=== PATIENT | female | born 1970 | race Caucasian/White ===

== ENCOUNTER 2017-05-06 08:17 | Inpatient (IN) | payer OTHER ==
[~2017-05-06] VITALS: Ht 162.6 cm; Wt 80.1 kg
[2017-05-06] MEDS ORDERED: hydrALAzine 20 MG/ML, 1ML IV ONE ×2 (09:00→10:30)
[2017-05-06] MEDS ORDERED: FENTANYL PF 100 MCG/2ML IV ONE ×2 (09:00→10:30)
[2017-05-06 09:15] LABS: HEMATOCRIT 42.2 % (34.6-47.8); HEMOGLOBIN 14.4 g/dL (11.7-16.4); WHITE BLOOD COUNT 5.3 x10^3/uL (3.4-10)
[2017-05-06] MEDS ORDERED: hydrALAzine 20 MG/ML, 1ML ONE (09:22)
[2017-05-06] MEDS ORDERED: FENTANYL PF 100 MCG/2ML ONE ×4 (09:22→12:24)
[2017-05-06 09:23] LABS: BLOOD UREA NITROGEN 11 mg/dL (7-18)
[2017-05-06 09:33] LABS: IS PT STATUS REG ER OR PRE ER? YES
[2017-05-06] MEDS ORDERED: LISI1TAB5 PO (09:42)
[2017-05-06] MEDS ORDERED: OMNIPAQUE 350 MG/ML, 100ML BOTTLE ONE (10:42)
[2017-05-06] MEDS: FENTANYL PF 100 MCG/2ML IVPush PRN ×2 (11:16→12:28)
[2017-05-06] MEDS ORDERED: HYDROmorphone 1 MG/ML, 1ML ONE (13:55)
[2017-05-06] MEDS ORDERED: ONDANSETRON 2MG/ML, 2ML IVPush PRN (14:00)
[2017-05-06] MEDS ORDERED: HYDROmorphone 1 MG/ML, 1ML IV SCH (14:00)
[2017-05-06] MEDS ORDERED: ONDANSETRON ODT 4 MG PO PRN (14:00)
[2017-05-06] MEDS ORDERED: GUAIFENESIN/DM 200-20MG, 10ML UDC PO PRN (14:00)
[2017-05-06] MEDS ORDERED: LABETALOL 5MG/ML, 20ML IVPush PRN (14:00)
[2017-05-06] MEDS: hydrALAzine 20 MG/ML, 1ML IVPush PRN (14:05)
[2017-05-06 16:16] VITALS: BP 179/114
[2017-05-06] MEDS: HYDROmorphone 2 MG/ML, 1ML IVPush PRN ×3 (17:02→22:13)
[2017-05-06] MEDS: HYDROCHLOROTHIAZIDE 12.5 MG CAPSULE PO SCH (17:28)
[2017-05-06] MEDS: LISINOPRIL 20 MG TABLET PO SCH (17:29)
[2017-05-06] MEDS ORDERED: CYANOCOBALAMIN 1,000 MCG/ML, 1ML IM ONE (18:30)
[2017-05-06] MEDS: SODIUM CHLORIDE 0.9% 1,000 ML IV SCH (18:32)
[2017-05-06] MEDS: NICOTINE 7 MG/24 HR PATCH.TD24 TD SCH (18:32)
[2017-05-06 20:23] VITALS: BP 146/90
[2017-05-06] MEDS ORDERED: LORazepam 1MG TABLET ONE (20:35)
[2017-05-06] MEDS: LORazepam 0.5MG TABLET PO PRN (20:53)
[2017-05-07 01:32] VITALS: BP 133/82
[2017-05-07] MEDS: HYDROmorphone 2 MG/ML, 1ML IVPush PRN ×4 (03:00→14:38)
[2017-05-07] MEDS: SODIUM CHLORIDE 0.9% 1,000 ML IV SCH ×3 (03:58→20:08)
[2017-05-07 05:25] LABS: HEMATOCRIT 38.7 % (34.6-47.8); HEMOGLOBIN 13.2 g/dL (11.7-16.4)
[2017-05-07 05:37] LABS: ASPARTATE AMINO TRANSFERASE 11 U/L (15-37); BLOOD UREA NITROGEN 15 mg/dL (7-18)
[2017-05-07] MEDS: HYDROCHLOROTHIAZIDE 12.5 MG CAPSULE PO SCH (08:37)
[2017-05-07] MEDS: LISINOPRIL 20 MG TABLET PO SCH (08:38)
[2017-05-07] MEDS: SENNA/DOCUSATE TABLET PO SCH (08:38)
[2017-05-07] MEDS: PANTOPRAZOLE 40 MG IV IVPush SCH (08:38)
[2017-05-07 08:55] VITALS: BP 166/84
[2017-05-07] MEDS ORDERED: POTASSIUM CHLORIDE 20 MEQ TAB.ER.PRT PO ONE (09:00)
[2017-05-07] MEDS: LORazepam 0.5MG TABLET PO PRN ×2 (09:32→20:08)
[2017-05-07 14:16] VITALS: BP 156/96
[2017-05-07] MEDS: NICOTINE 7 MG/24 HR PATCH.TD24 TD SCH (14:38)
[2017-05-07] MEDS: OXYcodone IR 5MG TABLET PO PRN ×2 (17:19→23:12)
[2017-05-07 19:22] VITALS: BP 158/94
[2017-05-08] VITALS (11 sets, daily range): BP systolic 146–189; BP diastolic 84–117
[2017-05-08] MEDS: hydrALAzine 20 MG/ML, 1ML IVPush PRN ×2 (01:32→17:33)
[2017-05-08] MEDS: SODIUM CHLORIDE 0.9% 1,000 ML IV SCH (03:31)
[2017-05-08] MEDS: OXYcodone IR 5MG TABLET PO PRN ×3 (05:14→22:37)
[2017-05-08 06:14] LABS: HEMATOCRIT 36.8 % (34.6-47.8); HEMOGLOBIN 12.6 g/dL (11.7-16.4); WHITE BLOOD COUNT 4.7 x10^3/uL (3.4-10)
[2017-05-08 06:33] LABS: ASPARTATE AMINO TRANSFERASE 19 U/L (15-37); BLOOD UREA NITROGEN 12 mg/dL (7-18)
[2017-05-08] MEDS: SENNA/DOCUSATE TABLET PO SCH (09:00)
[2017-05-08] MEDS: HYDROCHLOROTHIAZIDE 12.5 MG CAPSULE PO SCH ×2 (09:29→20:13)
[2017-05-08] MEDS: LORazepam 0.5MG TABLET PO PRN ×3 (09:29→17:39)
[2017-05-08] MEDS: PANTOPRAZOLE 40 MG IV IVPush SCH (09:29)
[2017-05-08] MEDS: LISINOPRIL 20 MG TABLET PO SCH ×2 (09:29→20:13)
[2017-05-08 09:55] LABS: OCCBLD OBC PASS
[2017-05-08] MEDS: NICOTINE 7 MG/24 HR PATCH.TD24 TD SCH (13:11)
[2017-05-08] MEDS ORDERED: OXYcodone IR 5MG TABLET PO PRN (13:30)
[2017-05-08] MEDS ORDERED: ACETAMINOPHEN 325 MG TABLET PO PRN (13:30)
[2017-05-08] MEDS ORDERED: HYDR12.53 PO (16:09)
[2017-05-08] MEDS ORDERED: LISI-170 PO (16:09)
[2017-05-09] MEDS: OXYcodone IR 5MG TABLET PO PRN ×4 (02:55→16:08)
[2017-05-09] MEDS: LORazepam 0.5MG TABLET PO PRN ×2 (02:55→10:49)
[2017-05-09 02:58] VITALS: BP 174/102
[2017-05-09] MEDS: hydrALAzine 20 MG/ML, 1ML IVPush PRN (03:02)
[2017-05-09 05:34] VITALS: BP 154/73
[2017-05-09 07:54] VITALS: BP 168/97
[2017-05-09] MEDS: HYDROCHLOROTHIAZIDE 12.5 MG CAPSULE PO SCH (08:15)
[2017-05-09] MEDS: LISINOPRIL 20 MG TABLET PO SCH (08:15)
[2017-05-09] MEDS: SENNA/DOCUSATE TABLET PO SCH (08:16)
[2017-05-09] MEDS ORDERED: AMLODIPINE 5 MG TABLET PO ONE (08:30)
[2017-05-09] MEDS ORDERED: ENALAPRILAT 1.25 MG/ML, 2ML IV PRN (10:30)
[2017-05-09 10:39] VITALS: BP 166/97
[2017-05-09 14:00] VITALS: BP 154/92
[2017-05-09] MEDS: NICOTINE 7 MG/24 HR PATCH.TD24 TD SCH (14:59)
[2017-05-09] MEDS ORDERED: AMLO2.5T PO (15:11)
== END 2017-05-09 16:11 | disposition home or self-care (01) | DRG 392 ==
LOC: ED 09:41 → EDIP 13:39 → 4EST 16:02
PROVIDERS: ADMIT Internal Medicine; ATTEND Internal Medicine
DX: R10.32 Left lower quadrant pain (principal); D75.89 Other specified diseases of blood and blood-forming organs; I16.0 Hypertensive urgency; F17.210 Nicotine dependence, cigarettes, uncomplicated; K21.9 Gastro-esophageal reflux disease without esophagitis; G89.29 Other chronic pain; I77.810 Thoracic aortic ectasia; N83.202 Unspecified ovarian cyst, left side; R63.4 Abnormal weight loss; N83.201 Unspecified ovarian cyst, right side; Z79.899 Other long term (current) drug therapy; Z80.41 Family history of malignant neoplasm of ovary; Z80.49 Family history of malignant neoplasm of other genital organs; Z82.49 Family history of ischemic heart disease and other diseases of the circulatory system; Z90.711 Acquired absence of uterus with remaining cervical stump; Z85.42 Personal history of malignant neoplasm of other parts of uterus; Z68.30 Body mass index [BMI] 30.0-30.9, adult; Z86.010 Personal history of colon polyps; Z90.721 Acquired absence of ovaries, unilateral; Z98.51 Tubal ligation status
CPT/HCPCS: 36415; 70450; 71010; 71275; 74175; 74176; 76700; 76830; 80048; 80053; 81003; 82040; 82272; 82607; 82746; 83690; 83735; 83880; 84439; 84443; 84484; 84702; 85025; 85610; 93005; 93306; 96374; 96375; 96376; J1170; J3010; Q9967; C9113; J0360; J3420; J7030

== ENCOUNTER 2017-06-29 16:33 | Inpatient (IN) | payer MEDICAID ==
[~2017-06-29] VITALS: Ht 162.6 cm; Wt 74.3 kg
[~2017-06-29 16:33] MED LIST: AMLO2.5T PO; HYDR12.53 PO; LISI-170 PO; LISI1TAB5 PO
[2017-06-29] MEDS ORDERED: SODIUM CHLORIDE 0.9% 1,000ML IVBOLUS ONE ×2 (17:00→18:00)
[2017-06-29] MEDS ORDERED: SODIUM CHLORIDE FLUSH 10ML SYR IVF ONE (17:00)
[2017-06-29] MEDS ORDERED: ONDANSETRON 2MG/ML, 2ML IVPush ONE (17:00)
[2017-06-29] MEDS ORDERED: ONDANSETRON 2MG/ML, 2ML ONE (17:11)
[2017-06-29] MEDS ORDERED: HYDROmorphone 1 MG/ML, 1ML ONE ×3 (17:12→18:49)
[2017-06-29 17:16] LABS: HEMATOCRIT 45.4 % (34.6-47.8); HEMOGLOBIN 15.5 g/dL (11.7-16.4); WHITE BLOOD COUNT 7.7 x10^3/uL (3.4-10)
[2017-06-29] MEDS: HYDROmorphone 1 MG/ML, 1ML IVPush PRN ×2 (17:19→18:11)
[2017-06-29] MEDS ORDERED: TRAM50TA2 PO (17:22)
[2017-06-29 17:27] LABS: ASPARTATE AMINO TRANSFERASE 26 U/L (15-37); BLOOD UREA NITROGEN 26 mg/dL (7-18)
[2017-06-29] MEDS ORDERED: OMNIPAQUE 350 MG/ML, 100ML BOTTLE ONE (18:16)
[2017-06-29] MEDS ORDERED: SODIUM CHLORIDE 0.9% 1,000 ML IV ONE (18:42)
[2017-06-29] MEDS ORDERED: HYDROmorphone 1 MG/ML, 1ML IVPush PRN (19:00)
[2017-06-29] MEDS ORDERED: SODIUM CHLORIDE FLUSH 10ML SYR IVF PRN (19:00)
[2017-06-29] MEDS ORDERED: ENALAPRILAT 1.25 MG/ML, 2ML IVPush PRN (19:30)
[2017-06-29] MEDS ORDERED: BISACODYL 10 MG SUPP PR PRN (19:30)
[2017-06-29] MEDS ORDERED: hydrALAzine 20 MG/ML, 1ML IVPush PRN (19:30)
[2017-06-29] MEDS ORDERED: POLYETHYLENE GLYCOL 17 GM PACKET PO PRN (19:30)
[2017-06-29 20:39] VITALS: BP 139/85
[2017-06-29] MEDS: SODIUM CHLORIDE 0.9% 1,000 ML IV SCH (20:49)
[2017-06-29] MEDS: CEFTRIAXONE PMX 1GM/50ML 50 ML IV SCH (21:00)
[2017-06-29] MEDS: SUCRALFATE 1 GM/10 ML UDC PO SCH (21:03)
[2017-06-29] MEDS: NICOTINE 7 MG/24 HR PATCH.TD24 TD SCH (21:05)
[2017-06-29] MEDS: morphine SULFATE 10 MG/ML, 1ML IVPush PRN (21:20)
[2017-06-29 21:22] VITALS: BP 139/85
[2017-06-29] MEDS: PANTOPRAZOLE 40 MG IV IVPush SCH (21:37)
[2017-06-30 01:08] VITALS: BP 120/78
[2017-06-30] MEDS: morphine SULFATE 10 MG/ML, 1ML IVPush PRN ×7 (01:15→21:01)
[2017-06-30] MEDS: ONDANSETRON 2MG/ML, 2ML IVPush PRN ×3 (01:15→18:47)
[2017-06-30] MEDS: SODIUM CHLORIDE 0.9% 1,000 ML IV SCH ×2 (05:15→11:40)
[2017-06-30 05:54] LABS: HEMATOCRIT 39.9 % (34.6-47.8); HEMOGLOBIN 13.4 g/dL (11.7-16.4); WHITE BLOOD COUNT 4.8 x10^3/uL (3.4-10)
[2017-06-30 05:56] LABS: ASPARTATE AMINO TRANSFERASE 15 U/L (15-37); BLOOD UREA NITROGEN 20 mg/dL (7-18)
[2017-06-30] MEDS: SUCRALFATE 1 GM/10 ML UDC PO SCH ×4 (07:45→21:01)
[2017-06-30 08:03] VITALS: BP 121/81
[2017-06-30] MEDS: PANTOPRAZOLE 40 MG IV IVPush SCH (08:27)
[2017-06-30] MEDS: SENNA/DOCUSATE TABLET PO SCH (08:27)
[2017-06-30] MEDS: AMLODIPINE 5 MG TABLET PO SCH (08:27)
[2017-06-30] MEDS ORDERED: MAALOX/HYOSCYAMINE/LIDOCAINE 45 ML BTL PO PRN (10:30)
[2017-06-30 13:14] VITALS: BP 113/71
[2017-06-30] MEDS: PANTOPROZOLE 40MG TABLET PO SCH (17:07)
[2017-06-30 19:50] VITALS: BP 118/66
[2017-06-30] MEDS: CEFTRIAXONE PMX 1GM/50ML 50 ML IV SCH (21:01)
[2017-06-30] MEDS: NICOTINE 7 MG/24 HR PATCH.TD24 TD SCH (21:01)
[2017-07-01] MEDS: morphine SULFATE 10 MG/ML, 1ML IVPush PRN ×6 (01:07→20:19)
[2017-07-01 01:20] VITALS: BP 122/75
[2017-07-01 07:57] VITALS: BP 119/73
[2017-07-01] MEDS: SUCRALFATE 1 GM/10 ML UDC PO SCH ×4 (08:18→20:29)
[2017-07-01] MEDS: PANTOPROZOLE 40MG TABLET PO SCH ×2 (08:18→16:43)
[2017-07-01] MEDS: AMLODIPINE 5 MG TABLET PO SCH (08:39)
[2017-07-01] MEDS: SENNA/DOCUSATE TABLET PO SCH (08:39)
[2017-07-01] MEDS: OXYcodone IR 5MG TABLET PO PRN ×3 (12:38→22:04)
[2017-07-01 13:34] VITALS: BP 112/69
[2017-07-01 19:21] VITALS: BP 124/74
[2017-07-01] MEDS: CEFTRIAXONE PMX 1GM/50ML 50 ML IV SCH (20:28)
[2017-07-01] MEDS: NICOTINE 7 MG/24 HR PATCH.TD24 TD SCH (20:28)
[2017-07-02 02:08] VITALS: BP 118/71
[2017-07-02] MEDS: morphine SULFATE 10 MG/ML, 1ML IVPush PRN ×3 (05:06→12:23)
[2017-07-02 05:31] LABS: HEMATOCRIT 37.3 % (34.6-47.8); HEMOGLOBIN 12.7 g/dL (11.7-16.4); WHITE BLOOD COUNT 4.2 x10^3/uL (3.4-10)
[2017-07-02 05:51] LABS: ASPARTATE AMINO TRANSFERASE 16 U/L (15-37); BLOOD UREA NITROGEN 19 mg/dL (7-18); C-REACTIVE PROTEIN, QUANT 0.08 mg/dL (0.02-0.49)
[2017-07-02] MEDS: OXYcodone IR 5MG TABLET PO PRN ×3 (07:28→15:30)
[2017-07-02 08:00] VITALS: BP 138/92
[2017-07-02] MEDS: SUCRALFATE 1 GM/10 ML UDC PO SCH ×3 (08:27→15:31)
[2017-07-02] MEDS: PANTOPROZOLE 40MG TABLET PO SCH (08:29)
[2017-07-02] MEDS: SENNA/DOCUSATE TABLET PO SCH (08:30)
[2017-07-02] MEDS: AMLODIPINE 5 MG TABLET PO SCH (08:30)
[2017-07-02 13:31] VITALS: BP 126/74
[2017-07-02] MEDS ORDERED: OMEP20TA62 PO (14:36)
[2017-07-08] MEDS ORDERED: HYDR12.58 PO (13:02)
[2017-07-08] MEDS ORDERED: OMEP-110 PO (13:02)
[2017-07-08] MEDS ORDERED: LISI-170 PO (13:02)
== END 2017-07-02 16:15 | disposition home or self-care (01) | DRG 682 ==
LOC: ED 17:16 → EDIP 19:11 → 3NE 20:35 → DCLOUNGE 07-02 15:38
PROVIDERS: ADMIT Internal Medicine; ATTEND Family Medicine
DX: N17.0 Acute kidney failure with tubular necrosis (principal); K85.90 Acute pancreatitis without necrosis or infection, unspecified; E87.2 Acidosis; N39.0 Urinary tract infection, site not specified; E86.0 Dehydration; F17.210 Nicotine dependence, cigarettes, uncomplicated; I10 Essential (primary) hypertension; K21.9 Gastro-esophageal reflux disease without esophagitis; K22.70 Barrett's esophagus without dysplasia; K29.80 Duodenitis without bleeding; K44.9 Diaphragmatic hernia without obstruction or gangrene; K57.90 Diverticulosis of intestine, part unspecified, without perforation or abscess without bleeding; N83.202 Unspecified ovarian cyst, left side; Z90.710 Acquired absence of both cervix and uterus; Z98.51 Tubal ligation status; Z79.899 Other long term (current) drug therapy
CPT/HCPCS: 36415; 74000; 74022; 74177; 80048; 80053; 80061; 80076; 81001; 83036; 83605; 83690; 83735; 84439; 84443; 84703; 85025; 85610; 85651; 86140; 86677; 87086; 96361; 96374; 96375; 96376; J0696; J1170; J2405; Q9967; C9113; J2270; J7030

== ENCOUNTER → 2017-07-08 | Outpatient (CLI) | payer MEDICAID ==
[~2017-07-08] MED LIST changes: +HYDR12.58 PO; +OMEP-110 PO; +OMEP20TA62 PO; +TRAM50TA2 PO
== END | disposition home or self-care (01) ==
LOC: STAR 13:48
PROVIDERS: ATTEND Obstetrics & Gynecology Female Pelvic Medicine and Reconstructive Surgery
DX: Z01.818 Encounter for other preprocedural examination (principal); R10.2 Pelvic and perineal pain; N39.3 Stress incontinence (female) (male); N85.8 Other specified noninflammatory disorders of uterus
CPT/HCPCS: 81003

== ENCOUNTER 2017-07-14 10:21 | Day surgery (SDC) | payer MEDICAID ==
[~2017-07-14] VITALS: Ht 162.6 cm; Wt 75.8 kg
[~2017-07-14 10:21] MED LIST changes: +BUPIVACAINE/PF 0.25% ONE; +EPINEPHRINE 1 MG/ML, 1ML ONE; +NEOMY/POLYMYXIN B GU IRR. 1 ML IRRIG ONE
[2017-07-14] MEDS ORDERED: LACTATED RINGERS 1,000 ML IV SCH (11:12)
[2017-07-14 11:24] VITALS: BP 144/99
[2017-07-14] MEDS ORDERED: GLYCOPYRROLATE 0.2MG/1ML, 5ML ONE (11:51)
[2017-07-14] MEDS ORDERED: FENTANYL PF 250 MCG/5ML ONE (11:51)
[2017-07-14] MEDS ORDERED: MIDAZOLAM 1 MG/ML, 2ML ONE (11:51)
[2017-07-14] MEDS ORDERED: PROPOFOL 10 MG/ML, 20ML ONE (11:51)
[2017-07-14] MEDS ORDERED: DEXAMETHASONE 4 MG/ML, 1ML ONE (11:51)
[2017-07-14] MEDS ORDERED: CEFAZOLIN 1,000 MG ONE (11:51)
[2017-07-14] MEDS ORDERED: SUCCINYLCHOLINE 20 MG/ML, 10ML ONE (11:52)
[2017-07-14] MEDS ORDERED: ROCURONIUM 10 MG/ML,10ML ONE (11:52)
[2017-07-14] MEDS ORDERED: ONDANSETRON 2MG/ML, 2ML ONE (11:52)
[2017-07-14] MEDS ORDERED: NEOSTIGMINE 1 MG/ML, 10ML ONE (11:52)
[2017-07-14] MEDS ORDERED: LIDOCAINE 4%, 4 ML SYR/CANN TP ONE ×2 (11:55→13:10)
[2017-07-14] MEDS ORDERED: LIDOCAINE-MPF 2% ,5ML ONE (12:29)
[2017-07-14] MEDS ORDERED: VASOPRESSIN 20 UNIT/ML, 1ML ONE (13:10)
[2017-07-14] MEDS ORDERED: hydrALAzine 20 MG/ML, 1ML IV PRN (13:30)
[2017-07-14] MEDS ORDERED: ACETAMINOPHEN 325 MG TABLET PO PRN (13:30)
[2017-07-14] MEDS ORDERED: OXYcodone 5 MG/5 ML ORAL.SOL UDC PO PRN (13:30)
[2017-07-14] MEDS ORDERED: ONDANSETRON 2MG/ML, 2ML IVPush PRN (13:30)
[2017-07-14] MEDS ORDERED: PROMETHAZINE 25 MG/ML, 1ML IV PRN (13:30)
[2017-07-14] MEDS ORDERED: LABETALOL 5MG/ML, 20ML IV PRN (13:30)
[2017-07-14] MEDS ORDERED: OXYcodone 5 MG/5 ML ORAL.SOL UDC ONE (14:23)
[2017-07-14] MEDS ORDERED: FENTANYL PF 100 MCG/2ML ONE (14:23)
[2017-07-14] MEDS: FENTANYL PF 100 MCG/2ML IV PRN ×2 (14:25→14:36)
[2017-07-14] MEDS ORDERED: HYDROmorphone 1 MG/ML, 1ML ONE ×2 (14:37→14:56)
[2017-07-14] MEDS: HYDROmorphone 1 MG/ML, 1ML IV PRN ×4 (14:39→15:16)
[2017-07-14] MEDS ORDERED: ACETAMINOPHEN 650 MG/20.3 ML UDC ONE (15:09)
== END 2017-07-14 17:00 ==
LOC: OUT 10:21
PROVIDERS: ATTEND Obstetrics & Gynecology Female Pelvic Medicine and Reconstructive Surgery
DX: N39.3 Stress incontinence (female) (male) (principal); N81.5 Vaginal enterocele; N32.81 Overactive bladder; N39.46 Mixed incontinence; N83.201 Unspecified ovarian cyst, right side; N10 Acute pyelonephritis; I10 Essential (primary) hypertension; Z90.710 Acquired absence of both cervix and uterus; Z98.890 Other specified postprocedural states
CPT/HCPCS: 57265; 57282; 57288; 58661; 88305; C1771; J0171; J0330; J0690; J1100; J1170; J2250; J2405; J2704; J2710; J3010; J3490; J7120

== ENCOUNTER 2017-07-18 17:43 | Emergency (ER) | payer MEDICAID ==
[~2017-07-18] VITALS: Ht 162.6 cm; Wt 76.8 kg
[~2017-07-18 17:43] MED LIST changes: -BUPIVACAINE/PF 0.25% ONE; -EPINEPHRINE 1 MG/ML, 1ML ONE; -NEOMY/POLYMYXIN B GU IRR. 1 ML IRRIG ONE
[2017-07-18] MEDS ORDERED: SODIUM CHLORIDE 0.9% 1,000 ML IV ONE (17:54)
[2017-07-18] MEDS ORDERED: HYDROmorphone 1 MG/ML, 1ML IVPush PRN (18:00)
[2017-07-18] MEDS ORDERED: SODIUM CHLORIDE 0.9% 1,000ML IVBOLUS ONE (18:00)
[2017-07-18] MEDS ORDERED: ONDANSETRON 2MG/ML, 2ML IVPush ONE (18:00)
[2017-07-18 18:23] LABS: HEMATOCRIT 41.1 % (34.6-47.8); HEMOGLOBIN 14.2 g/dL (11.7-16.4); WHITE BLOOD COUNT 5.9 x10^3/uL (3.4-10)
[2017-07-18] MEDS ORDERED: ONDANSETRON 2MG/ML, 2ML ONE (18:31)
[2017-07-18] MEDS ORDERED: HYDROmorphone 1 MG/ML, 1ML ONE (18:31)
[2017-07-18 18:35] LABS: ASPARTATE AMINO TRANSFERASE 328 U/L (15-37); BLOOD UREA NITROGEN 22 mg/dL (7-18)
[2017-07-18] MEDS ORDERED: OMNIPAQUE 350 MG/ML, 100ML BOTTLE ONE (19:46)
[2017-07-18] MEDS ORDERED: OXYcodone/APAP 5/325MG TABLET ONE (20:15)
[2017-07-18 20:21] VITALS: BP 178/100
[2017-07-18] MEDS ORDERED: OXYcodone/APAP 5/325MG TABLET PO ONE (20:30)
== END 2017-07-18 20:24 | disposition home or self-care (01) ==
LOC: ED 18:10
DX: N30.01 Acute cystitis with hematuria (principal); N99.89 Other postprocedural complications and disorders of genitourinary system; I10 Essential (primary) hypertension; E86.0 Dehydration; Z90.710 Acquired absence of both cervix and uterus; Z98.890 Other specified postprocedural states
CPT/HCPCS: 36415; 74022; 74177; 80053; 81001; 83690; 85025; 87086; 96361; 96374; 96375; 99285; J1170; J2405; J7030; Q9967

== ENCOUNTER 2017-08-02 15:40 | Emergency (ER) | payer MEDICAID ==
[~2017-08-02] VITALS: Ht 162.6 cm; Wt 75.7 kg
[2017-08-02 15:55] VITALS: BP 147/87
[2017-08-02] MEDS ORDERED: SODIUM CHLORIDE 0.9% 1,000 ML IV ONE (16:32)
[2017-08-02] MEDS ORDERED: ONDANSETRON 2MG/ML, 2ML ONE (16:47)
[2017-08-02] MEDS ORDERED: MORPHINE SULFATE 4 MG/ML, 1ML ONE ×2 (16:47→17:27)
[2017-08-02] MEDS: MORPHINE SULFATE 4 MG/ML, 1ML IVPush PRN ×2 (16:49→17:36)
[2017-08-02] MEDS ORDERED: LISI40TA PO (16:56)
[2017-08-02 17:00] LABS: HEMATOCRIT 41.2 % (34.6-47.8); HEMOGLOBIN 14.2 g/dL (11.7-16.4); WHITE BLOOD COUNT 5.1 x10^3/uL (3.4-10)
[2017-08-02] MEDS ORDERED: SODIUM CHLORIDE 0.9% 1,000ML IVBOLUS ONE (17:00)
[2017-08-02] MEDS ORDERED: SODIUM CHLORIDE FLUSH 10ML SYR IVF ONE (17:00)
[2017-08-02] MEDS ORDERED: ONDANSETRON 2MG/ML, 2ML IVPush ONE (17:00)
[2017-08-02 17:14] LABS: PATH.CAST-FLAG NOT PRESENT; SPERM-FLAG NOT PRESENT; SRC-FLAG NOT PRESENT; XTAL-FLAG NOT PRESENT; YLC-FLAG NOT PRESENT
[2017-08-02 17:16] LABS: ASPARTATE AMINO TRANSFERASE 13 U/L (15-37); BLOOD UREA NITROGEN 16 mg/dL (7-18)
== END 2017-08-02 18:47 | disposition home or self-care (01) ==
LOC: ED 18:05
DX: N30.01 Acute cystitis with hematuria (principal); I10 Essential (primary) hypertension
CPT/HCPCS: 36415; 80053; 81001; 85025; 87086; 96361; 96374; 96375; 96376; 99285; J2405; J7030

== ENCOUNTER 2018-05-05 19:00 | Emergency (ER) | payer MEDICAID ==
[~2018-05-05] VITALS: Ht 162.6 cm; Wt 79.2 kg
[~2018-05-05 19:00] MED LIST changes: -AMLO2.5T PO; +AMLO2.5T3 PO; +LISI40TA PO
[2018-05-05 19:24] VITALS: BP 154/108
[2018-05-05] MEDS ORDERED: DIAZEPAM 5 MG TABLET PO ONE (20:00)
[2018-05-05] MEDS ORDERED: ONDANSETRON ODT 4 MG PO ONE (20:00)
[2018-05-05] MEDS ORDERED: ONDANSETRON ODT 4 MG ONE (20:18)
[2018-05-05] MEDS ORDERED: DIAZEPAM 5 MG TABLET ONE (20:19)
== END 2018-05-05 21:13 | disposition home or self-care (01) ==
LOC: ED 20:55
DX: M48.54XA Collapsed vertebra, not elsewhere classified, thoracic region, initial encounter for fracture (principal); I10 Essential (primary) hypertension; F17.200 Nicotine dependence, unspecified, uncomplicated
CPT/HCPCS: 99284; Q0162

== ENCOUNTER → 2018-06-10 | Outpatient (CLI) | payer MEDICAID ==
[~2018-06-10] MED LIST changes: +AMLO5TAB7 PO; +CYCL-259 PO; +FENTANYL PF 100 MCG/2ML ONE; +FLUMAZENIL 0.1 MG/1 ML, 5ML ONE; +HYDR-3245 PO; +MIDAZOLAM 1 MG/ML, 5ML ONE; +NALOXONE 1 MG/ML, 2ML ONE; +NAPR-856 PO
== END | disposition home or self-care (01) ==
LOC: RAD 08:41
PROVIDERS: ATTEND Neurological Surgery
DX: M50.223 Other cervical disc displacement at C6-C7 level (principal); M47.896 Other spondylosis, lumbar region; M47.892 Other spondylosis, cervical region
CPT/HCPCS: 72141; 72148; 99156; 99157; J2250; J3010; J2310

== ENCOUNTER 2018-06-13 06:50 | Emergency (ER) | payer MEDICAID ==
[~2018-06-13] VITALS: Ht 162.6 cm; Wt 78.0 kg
[~2018-06-13 06:50] MED LIST changes: -AMLO5TAB7 PO; -CYCL-259 PO; -FENTANYL PF 100 MCG/2ML ONE; -FLUMAZENIL 0.1 MG/1 ML, 5ML ONE; -HYDR-3245 PO; -MIDAZOLAM 1 MG/ML, 5ML ONE; -NALOXONE 1 MG/ML, 2ML ONE; -NAPR-856 PO
[2018-06-13] MEDS ORDERED: CYCL-259 PO (07:11)
[2018-06-13] MEDS ORDERED: HYDR-3245 PO (07:12)
[2018-06-13] MEDS ORDERED: AMLO5TAB7 PO (07:12)
[2018-06-13] MEDS ORDERED: NAPR-856 PO (07:13)
[2018-06-13] MEDS ORDERED: DIAZEPAM 5 MG/ML, 10ML VIAL IM ONE (07:30)
[2018-06-13 08:25] VITALS: BP 156/83
== END 2018-06-13 08:44 | disposition home or self-care (01) ==
LOC: ED 08:37
DX: S39.012A Strain of muscle, fascia and tendon of lower back, initial encounter (principal); K21.9 Gastro-esophageal reflux disease without esophagitis; I10 Essential (primary) hypertension; F17.200 Nicotine dependence, unspecified, uncomplicated; Z90.710 Acquired absence of both cervix and uterus; Z90.721 Acquired absence of ovaries, unilateral; X58.XXXA Exposure to other specified factors, initial encounter; Y93.89 Activity, other specified; Y92.89 Other specified places as the place of occurrence of the external cause; Y99.8 Other external cause status
CPT/HCPCS: 96372; 99283; J3360; J7512

== ENCOUNTER 2018-09-19 10:46 | Emergency (ER) | payer MEDICAID ==
[~2018-09-19] VITALS: Ht 162.6 cm; Wt 80.5 kg
[~2018-09-19 10:46] MED LIST changes: +AMLO-150 PO; -AMLO2.5T3 PO; +AMLO2.5T5 PO; +CYCL-259 PO; +HYDR-3245 PO; +HYDR12.517 PO; -HYDR12.53 PO; -HYDR12.58 PO; +HYDROCHLOROTH12.5 MG PO; +NAPR-856 PO
--- NOTE | 2018-09-19 11:00 | NUR ---
PT WAS TRIAGED BY CLEMENTINA HESTER
[2018-09-19] MEDS ORDERED: HYDROmorphone 1 MG/ML, 1ML IM STA (12:01)
[2018-09-19] MEDS ORDERED: ONDANSETRON ODT 4 MG ONE (12:02)
[2018-09-19] MEDS ORDERED: HYDROmorphone 1 MG/ML, 1ML ONE ×2 (12:02→13:14)
[2018-09-19] MEDS ORDERED: ONDANSETRON ODT 4 MG PO ONE (12:30)
[2018-09-19] MEDS ORDERED: HYDROmorphone 1 MG/ML, 1ML IM ONE (13:10)
[2018-09-19] MEDS ORDERED: DIPHENHYDRAMINE 50 MG/ML, 1ML ONE (13:43)
[2018-09-19] MEDS ORDERED: LORazepam 2 MG/ML, 1ML ONE (14:25)
[2018-09-19] MEDS ORDERED: LORazepam 2 MG/ML, 1ML IM STA (14:27)
--- NOTE | 2018-09-19 14:36 | NUR ---
REPORT FROM SUPERVISOR MACHINE SETTER THAT PT NOT ABLE TO TOLLERATE MRI WITH MEDS GIVEN PRIOR R/T CLAUSTROPHOBIA. PT MEDICATED IN MRI PER ORDER.
[2018-09-19 15:31] VITALS: BP 184/94
--- NOTE | 2018-09-19 16:07 | NUR ---
Patient/Caregiver given discharge instructions and they have confirmed that they understand the instructions. Patient ambulatory with steady gait. PT LEFT WITH ALL PERSONAL BELONGIONGS.
== END 2018-09-19 16:08 | disposition home or self-care (01) ==
LOC: ED 13:09
DX: G89.29 Other chronic pain (principal); M54.12 Radiculopathy, cervical region; I10 Essential (primary) hypertension; K21.9 Gastro-esophageal reflux disease without esophagitis
CPT/HCPCS: 72141; 96372; 99284; J1170; J2060; Q0162

== ENCOUNTER 2018-10-06 22:57 | Emergency (ER) | payer MEDICAID ==
[~2018-10-06] VITALS: Ht 162.6 cm; Wt 81.5 kg
[2018-10-06] MEDS ORDERED: MORPHINE SULFATE 4 MG/ML, 1ML ONE (23:27)
[2018-10-06] MEDS ORDERED: ONDANSETRON 2MG/ML, 2ML ONE (23:27)
[2018-10-06] MEDS ORDERED: ONDANSETRON 2MG/ML, 2ML IVPush ONE (23:30)
[2018-10-06] MEDS: MORPHINE SULFATE 4 MG/ML, 1ML IVPush PRN (23:45)
--- NOTE | 2018-10-06 23:45 | NUR ---
IV ESTABLISHED, PT MEDICATED PER EMAR, 5 RIGHTS ADDRESSED. LABS DRAWN AND GIVEN TO HUGO DUNCAN. URINE SAMPLE OBTAINED FROM PT, SENT TO LAB.
[2018-10-06 23:50] VITALS: BP 101/81
[2018-10-06 23:52] LABS: BASOPHILS # (AUTO) 0.08 x10^3/uL (0-0.1); BASOPHILS % (AUTO) 2 % (0-1); EOSINOPHILS # (AUTO) 0.05 x10^3/uL (0-0.4); EOSINOPHILS % (AUTO) 1 % (1-7); LYMPHOCYTES # (AUTO) 1.66 x10^3/uL (1-3.4); LYMPHOCYTES % (AUTO) 33 % (22-44); MD NO; MEAN CORPUSCULAR HEMOGLOBIN 35.9 pg (27.0-34.8); MEAN CORPUSCULAR HGB CONC 34.2 g/dL (32.4-35.8); MEAN PLATELET VOLUME 8.1 fL (7.4-10.4); MONOCYTES % (AUTO) 10 % (2-9); NEUTROPHILS # (AUTO) 2.78 x10^3/uL (1.8-6.8); NEUTROPHILS % (AUTO) 55 % (42-75); PLATELET COUNT 257 x10^3/uL (130-400); RED BLOOD COUNT 3.79 x10^6/uL (3.82-5.3); RED CELL DISTRIBUTION WIDTH 16.9 % (9.6-15.2)
[2018-10-07] LABS: MICROSCOPIC NOT IND
[2018-10-07 00:02] LABS: CULTURE INDICATED? NO
[2018-10-07 00:06] LABS: ALANINE AMINOTRANSFERASE 63 U/L (12-78); ALBUMIN 3.4 g/dL (3.4-5.0); ANION GAP 9 mmol/L (5-15); CALCIUM 8.4 mg/dL (8.5-10.1); CHLORIDE 109 mmol/L (98-107)
[2018-10-07 00:08] LABS: ALKALINE PHOSPHATASE 134 U/L (45-117); BILIRUBIN,TOTAL 0.3 mg/dL (0.2-1.0); CREATININE 1.39 mg/dL (0.55-1.02); TOTAL PROTEIN 7.2 g/dL (6.4-8.2)
[2018-10-07] MEDS ORDERED: MORPHINE SULFATE 4 MG/ML, 1ML ONE (00:08)
[2018-10-07] MEDS: MORPHINE SULFATE 4 MG/ML, 1ML IVPush PRN (00:10)
--- NOTE | 2018-10-07 00:11 | NUR ---
PT MEDICATED PER EMAR FOR CONTINUED PAIN, 04/27. PLACED ON 2L BY NC FOR SUPPORT.
[2018-10-07] MEDS ORDERED: OMNIPAQUE 350 MG/ML, 100ML BOTTLE ONE (00:40)
[2018-10-07] MEDS ORDERED: MAALOX/HYOSCYAMINE/LIDOCAINE 45 ML BTL PO ONE (01:30)
== END 2018-10-07 01:30 | disposition home or self-care (01) ==
LOC: ED 23:20
DX: K57.30 Diverticulosis of large intestine without perforation or abscess without bleeding (principal); I10 Essential (primary) hypertension; K21.9 Gastro-esophageal reflux disease without esophagitis; F17.200 Nicotine dependence, unspecified, uncomplicated; Z90.710 Acquired absence of both cervix and uterus; Z90.722 Acquired absence of ovaries, bilateral
CPT/HCPCS: 36415; 74177; 80053; 81003; 83690; 85025; 93005; 96374; 96375; 99284; J2405; Q9967

== ENCOUNTER 2020-07-03 13:12 | Observation (INO) | payer MEDICAID, OTHER ==
[~2020-07-03] VITALS: Ht 162.6 cm; Wt 80.0 kg
[~2020-07-03 13:12] MED LIST changes: +LISI1TAB39 PO; -LISI1TAB5 PO
[2020-07-03 14:10] LABS: BASOPHILS % (AUTO) 1 % (0-1); EOSINOPHILS % (AUTO) 2 % (1-7); LYMPHOCYTES % (AUTO) 25 % (22-44); MEAN CORPUSCULAR HEMOGLOBIN 28.7 pg (27.0-34.8); MEAN CORPUSCULAR HGB CONC 33.3 g/dL (32.4-35.8); MEAN PLATELET VOLUME 8.3 fL (7.4-10.4); MONOCYTES % (AUTO) 5 % (2-9); NEUTROPHILS % (AUTO) 67 % (42-75); PLATELET COUNT 305 x10^3/uL (130-400); RED BLOOD COUNT 5.74 x10^6/uL (3.82-5.3); RED CELL DISTRIBUTION WIDTH 13.4 % (9.6-15.2)
[2020-07-03 14:19] LABS: ALANINE AMINOTRANSFERASE 79 U/L (12-78); ALBUMIN 3.6 g/dL (3.4-5.0); ANION GAP 7 mmol/L (5-15); CHLORIDE 110 mmol/L (98-107); CREATININE 1.38 mg/dL (0.55-1.02)
[2020-07-03 14:24] LABS: ALKALINE PHOSPHATASE 162 U/L (45-117); BILIRUBIN,TOTAL 0.2 mg/dL (0.2-1.0); TOTAL PROTEIN 7.6 g/dL (6.4-8.2)
[2020-07-03 14:36] LABS: MD NO
[2020-07-03] MEDS ORDERED: SODIUM CHLORIDE FLUSH 10ML SYR IVF ONE (16:00)
[2020-07-03] MEDS ORDERED: ONDANSETRON 2MG/ML, 2ML IVPush ONE (16:00)
[2020-07-03] MEDS ORDERED: HYDROmorphone 2 MG/ML, 1ML IVPush PRN (16:00)
[2020-07-03] MEDS ORDERED: METHOCARBAMOL 750 MG TABLET PO ONE (16:00)
[2020-07-03] MEDS ORDERED: HYDROmorphone 1 MG/ML, 1ML INJ ONE ×2 (16:04→17:02)
[2020-07-03] MEDS ORDERED: METHOCARBAMOL 750 MG TABLET ONE (16:04)
[2020-07-03] MEDS ORDERED: ONDANSETRON 2MG/ML, 2ML ONE (16:04)
--- NOTE | 2020-07-03 16:16 | NUR ---
PT TAKEN TO IMAGING.
[2020-07-03] MEDS ORDERED: OMNIPAQUE 350 MG/ML, 100ML BOTTLE ONE (16:39)
--- NOTE | 2020-07-03 16:50 | NUR ---
REPORT TO CLEMENTINA SALDANA.
[2020-07-03] MEDS ORDERED: ASPIRIN 81 MG TABLET CHEW ONE (17:12)
[2020-07-03] MEDS ORDERED: NITROGLYCERIN SINGLE TAB 0.4 MG SL ONE ×2 (17:12→19:26)
[2020-07-03] MEDS: NITROGLYCERIN SINGLE TAB 0.4 MG SL PRN ×3 (17:14→17:53)
--- NOTE | 2020-07-03 17:19 | NUR ---
BREAK RN: PT HAD ONSET OF MILD CHEST PAIN, REPEAT BP 220/112. MD NOTIFIED, NITRO, ASA AND EKG AND TROPONIN ORDERED. ON RETURN TO ROOM PT HAD EVEN MORE WORSENING 10/10 CP WITH NUMBNESS INTO L ARM. EKG DONE, MD NOTIFED
[2020-07-03] MEDS ORDERED: ASPIRIN 81 MG TABLET CHEW PO ONE (17:30)
[2020-07-03 17:31] LABS: TROPONIN I < 0.015 ng/mL (0.000-0.045)
--- NOTE | 2020-07-03 18:45 | NUR ---
PT LAYING BACK IN BED, RESPIRATIONS EVEN AND UNLABORED ON NC. PT DENIES PAIN AT THIS TIME. SIDE RAILS UP, CALL LIGHT IN REACH.
--- NOTE | 2020-07-03 18:59 | NUR ---
ULYSSES PARIKH [phone] IS PT'S AND CAN BE CALLED WITH UPDATES.
[2020-07-03] MEDS ORDERED: SODIUM CHLORIDE FLUSH 10ML SYR IVF PRN (19:00)
--- NOTE | 2020-07-03 19:19 | NUR ---
REPORT TO CLEMENTINA HERNANDEZ.
--- NOTE | 2020-07-03 19:25 | NUR ---
REPORT FROM GEO MCRAE
--- NOTE | 2020-07-03 19:55 | NUR ---
PT RESTING IN [facility], STATES CP HAS "BEEN GONE". BP 177/117. WENT HOME. AWAITING [facility] TO SEE PT.
--- NOTE | 2020-07-03 20:34 | NUR ---
REPORT TO MAYO MCRAE
[2020-07-03] MEDS ORDERED: ACETAMINOPHEN 325 MG TABLET PO PRN (21:00)
[2020-07-03] MEDS ORDERED: morphine SULFATE 10 MG/ML, 1ML IV PRN (21:00)
[2020-07-03] MEDS ORDERED: hydrALAzine 20 MG/ML, 1ML IVPush PRN (21:00)
[2020-07-03] MEDS: NITROGLYCERIN OINT 2%, 1GM TP SCH (21:00)
[2020-07-03] MEDS ORDERED: NICOTINE 7 MG/24 HR PATCH.TD24 TD SCH (21:00)
[2020-07-03] MEDS ORDERED: ONDANSETRON 2MG/ML, 2ML IVPush PRN (21:00)
[2020-07-03] MEDS: HEPARIN 5,000 UNITS/ML, 1ML SQ SCH (21:35)
[2020-07-03] MEDS: KETOROLAC 30 MG/1 ML IV PRN (21:38)
[2020-07-03] MEDS: CYCLOBENZAPRINE 10 MG TABLET PO PRN (21:38)
[2020-07-03 21:51] VITALS: BP 178/110
[2020-07-03 23:38] LABS: TROPONIN I < 0.015 ng/mL (0.000-0.045)
[2020-07-04 00:25] VITALS: BP 166/104
[2020-07-04] MEDS: NITROGLYCERIN OINT 2%, 1GM TP SCH ×3 (03:24→15:00)
[2020-07-04] MEDS: HEPARIN 5,000 UNITS/ML, 1ML SQ SCH ×2 (05:11→12:26)
[2020-07-04] MEDS ORDERED: ASPIRIN 325 MG TABLET EC PO SCH (06:00)
[2020-07-04] MEDS ORDERED: OMEPRAZOLE 20 MG CAPSULE.DR PO SCH (06:00)
[2020-07-04 07:11] VITALS: BP 163/100
[2020-07-04 07:22] LABS: TROPONIN I < 0.015 ng/mL (0.000-0.045)
[2020-07-04] MEDS: KETOROLAC 30 MG/1 ML IV PRN (08:10)
[2020-07-04] MEDS ORDERED: LISINOPRIL 40 MG TABLET PO SCH (09:00)
[2020-07-04] MEDS ORDERED: HYDROCHLOROTHIAZIDE 12.5 MG CAPSULE PO SCH (09:00)
[2020-07-04] MEDS ORDERED: REGADENOSON 0.4 MG/5 ML SYRINGE ONE (09:05)
[2020-07-04 11:13] VITALS: BP 170/94
[2020-07-04] MEDS: CYCLOBENZAPRINE 10 MG TABLET PO PRN (11:20)
[2020-07-04 13:43] VITALS: BP 147/94
[2020-07-04] MEDS ORDERED: CARV3.1212 PO (14:49)
[2020-07-04] MEDS ORDERED: HYDR-3240 PO (14:49)
[2020-07-04] MEDS ORDERED: HYDROcodone/APAP 5/325 TABLET PO ONE (15:00)
[2020-07-04] MEDS ORDERED: CARVEDILOL 3.125 MG TABLET PO SCH (18:00)
== END 2020-07-04 15:43 | disposition home or self-care (01) ==
LOC: ED 18:15 → INTOOBSV 18:36 → EDIP 18:36 → 5SO 20:51 → DCLOUNGE 07-04 15:37
PROVIDERS: ADMIT Family Medicine; ATTEND Hospitalist
DX: I16.1 Hypertensive emergency (principal); I10 Essential (primary) hypertension; N17.0 Acute kidney failure with tubular necrosis; K21.9 Gastro-esophageal reflux disease without esophagitis; G89.29 Other chronic pain; M54.2 Cervicalgia; M54.9 Dorsalgia, unspecified; K22.70 Barrett's esophagus without dysplasia; M40.204 Unspecified kyphosis, thoracic region; F17.200 Nicotine dependence, unspecified, uncomplicated; Z87.19 Personal history of other diseases of the digestive system; Z79.899 Other long term (current) drug therapy; Z90.710 Acquired absence of both cervix and uterus
CPT/HCPCS: 36415; 71045; 71275; 72072; 78452; 80053; 84443; 84484; 85025; 93005; 93017; 96372; 96374; 96375; 96376; 99285; A9502; C9898; G0378; J1170; J1644; J1885; J2405; J2785; Q9967

== ENCOUNTER 2020-08-03 16:51 | Emergency (ER) | payer MEDICAID ==
[~2020-08-03] VITALS: Ht 162.6 cm; Wt 84.1 kg
[~2020-08-03 16:51] MED LIST changes: +CARV3.1212 PO; +HYDR-3240 PO
[2020-08-03 16:54] VITALS: BP 148/85
[2020-08-03] MEDS ORDERED: KETOROLAC 30 MG/1 ML IM ONE (17:00)
[2020-08-03] MEDS ORDERED: HYDROcodone/APAP 5/325 TABLET PO ONE (17:00)
[2020-08-03] MEDS ORDERED: CYCLOBENZAPRINE 10 MG TABLET PO ONE (17:00)
[2020-08-03] MEDS ORDERED: ONDANSETRON ODT 4 MG PO ONE (17:00)
[2020-08-03 18:32] LABS: ALANINE AMINOTRANSFERASE 43 U/L (12-78); ALBUMIN 3.7 g/dL (3.4-5.0); ANION GAP 2 mmol/L (5-15); CALCIUM 9.2 mg/dL (8.5-10.1); CHLORIDE 109 mmol/L (98-107); CREATININE 1.47 mg/dL (0.55-1.02)
[2020-08-03 18:34] LABS: ALKALINE PHOSPHATASE 149 U/L (45-117); BILIRUBIN,TOTAL 0.2 mg/dL (0.2-1.0); TOTAL PROTEIN 7.4 g/dL (6.4-8.2)
[2020-08-03 20:11] LABS: BASOPHILS % (AUTO) 1 % (0-1); EOSINOPHILS % (AUTO) 2 % (1-7); LYMPHOCYTES % (AUTO) 30 % (22-44); MEAN CORPUSCULAR HEMOGLOBIN 28.6 pg (27.0-34.8); MEAN CORPUSCULAR HGB CONC 32.9 g/dL (32.4-35.8); MEAN PLATELET VOLUME 9.1 fL (7.4-10.4); MONOCYTES % (AUTO) 7 % (2-9); NEUTROPHILS % (AUTO) 60 % (42-75); PLATELET COUNT 263 x10^3/uL (130-400); RED BLOOD COUNT 4.97 x10^6/uL (3.82-5.3)
[2020-08-03 20:12] LABS: MD NO
--- NOTE | 2020-08-03 20:20 | NUR ---
NIL X 1
--- NOTE | 2020-08-03 20:48 | NUR ---
PT NOT IN LOBBY X 2
--- NOTE | 2020-08-03 21:22 | NUR ---
NOT IN LOBBY X 3
== END 2020-08-03 21:24 | disposition left against medical advice (07) ==
LOC: ED 21:20
DX: M54.5 Low back pain (principal); R07.89 Other chest pain; I51.7 Cardiomegaly
CPT/HCPCS: 36415; 71045; 80053; 85025; 93005; 99285